=== PATIENT | female | born 2000 | race American Indian/Alaskan Native ===

== ENCOUNTER 2022-02-17 21:54 | Emergency (ER) | payer SELFPAY ==
[2022-02-17 23:26] VITALS: BP 93/56
--- NOTE | 2022-02-19 11:10 | Electrocardiograph Report ---
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
== END 2022-02-19 22:59 | disposition left against medical advice (07) ==
LOC: ED 21:54
DX: R55 Syncope and collapse (principal); Z53.21 Procedure and treatment not carried out due to patient leaving prior to being seen by health care provider
CPT/HCPCS: 93005